=== PATIENT | female | born 1990 ===

== ENCOUNTER 2022-04-24 20:53 | Emergency (ER) | payer OTHER, SELFPAY ==
[2022-04-24] VITALS (11 sets, daily range): BP systolic 111–133; BP diastolic 56–66; PULSE 73–109; RESP 17–62; TEMP 36; O2SAT 99–100
--- NOTE | 2022-04-24 | DI.CT.S_ITS ---
PROCEDURE: CT ANGIO HEAD AND NECK INDICATIONS: stroke TECHNIQUE: After the administration of intravenous contrast, 1 mm thick sections acquired from the aortic arch through the [place] of [place]. Post-contrast 4.5 mm thick sections then re-acquired from the foramen magnum to the vertex. 3-dimensional yalwqog-qyjcghidh-qwiwkrbmxx (MIP) and/or volume rendering reformats were acquired of the central intracranial vasculature and neck separately. For radiation dose reduction, the following was used: automated exposure control, adjustment of mA and/or kV according to patient size. COMPARISON: [facility], CT, CT HEAD/BRAIN WO CON, 04/24/2022, 20:56. FINDINGS: Image quality: Excellent. BRAIN: Brain: There is a large right intraparenchymal hematoma centered in the right parietal and temporal lobes measuring up to approximately 5.7 x 3.1 cm in transverse dimension with adjacent vasogenic edema and mass effect. There is leftward midline shift of up to approximately 1 cm. There is partial effacement of the basilar cisterns suggestive of developing transtentorial herniation. There is also partial effacement of the right lateral ventricle. Skull and face: Calvarium and facial bones appear intact, without suspicious lesions. Orbits appear normal. Sinuses: Sinuses and mastoids are clear. HEAD CT ANGIOGRAPHY: Anterior circulation: Intracranial internal carotid arteries are normal in size and appear patent bilaterally. The paired anterior cerebral arteries appear patent bilaterally. The anterior communicating artery also appears patent. The middle cerebral arteries appear patent bilaterally. No high-grade stenosis, occlusion, or filling defects. No cerebral aneurysms identified. Posterior circulation: There are tortuous vessels in the peripheral right temporal lobe adjacent to the lateral aspect of the parenchymal hematoma consistent with a vascular malformation, likely an arteriovenous malformation. Visualized portions of the vertebral arteries demonstrate normal caliber, and join to form a patent basilar artery. The posterior cerebral arteries appear patent bilaterally. No high-grade stenosis, occlusion, or filling defects. No cerebral aneurysms identified. NECK CT ANGIOGRAPHY: Carotid system: The great vessels demonstrate a conventional anatomy as they arise from the aortic arch. The origins of the common carotid arteries appear patent. The common carotid arteries demonstrate normal caliber and courses. The bifurcation regions are both widely patent. The internal carotid arteries demonstrate normal calibers and courses. Posterior circulation: The origins of the vertebral arteries both appear patent. The more superior extracranial portions of both vertebral arteries also demonstrate normal courses and calibers. They join to form a patent basilar artery. Soft tissues: Visualized neck soft tissues demonstrate no suspicious abnormalities. Bones: No suspicious bony lesions. Visualized cervical spine demonstrates straightening of the cervical lordosis. There is multilevel degenerative disc disease and facet joint arthropathy. IMPRESSION: 1. Large intraparenchymal hematoma redemonstrated within the right parietal and temporal lobes with associated vasogenic edema and mass effect as described. 2. 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 Findings called to Dr. Wagoner on 04/24/2022 at 9:18 p.m.. Any quantitative measurements of stenosis were performed using NASCET criteria. Dictated by: Jack Taylor M.D. on 04/24/2022 at 21:22 Approved by: Jack Taylor M.D. on 04/24/2022 at 21:33
--- NOTE | 2022-04-24 | DI.CT.S_ITS ---
PROCEDURE: CT HEAD/BRAIN WO CON INDICATIONS: stroke TECHNIQUE: Noncontrast 4.5 mm thick angled axial sections acquired from the foramen magnum to the vertex, with coronal and sagittal reformats. For radiation dose reduction, the following was used: automated exposure control, adjustment of mA and/or kV according to patient size. COMPARISON: [facility], CT, CT ANGIO HEAD AND NECK, 04/24/2022, 20:56. FINDINGS: Image quality: There is mild motion artifact. Brain: There is a large intraparenchymal hematoma centered in the right parietal and temporal lobes measuring up to approximately 5.5 x 2.9 cm in transverse dimension with associated vasogenic edema and mass effect. There is leftward midline shift of approximately 1 cm. There is partial effacement of the basilar cisterns suggestive of developing transtentorial herniation. There is also effacement of the right lateral ventricle. Skull and face: Calvarium and visualized facial bones are intact, without suspicious lesions. Sinuses: Visualized sinuses and mastoids are clear. IMPRESSION: 1. Large right intraparenchymal hematoma centered in the right parietal and temporal lobes with associated vasogenic edema and mass effect including leftward midline shift and developing transtentorial herniation. Results were called to the emergency room for Dr. Wagoner on 04/24/2022 at 9:18 p.m.. Dictated by: Jack Taylor M.D. on 04/24/2022 at 21:16 Approved by: Jack Taylor M.D. on 04/24/2022 at 21:22
--- NOTE | 2022-04-24 20:59 | ED.HA ---
HPI - Headache General Chief Complaint: Neuro Symptoms/Deficit Stated Complaint: Headache- code stroke- Time Seen by Provider: 04/24/22 20:58 History of Present Illness HPI Narrative: Patient is a 31-year-old female currently 33 weeks roughly presenting today with sudden onset of right sided headache vomiting and not moving her left side it all started approximately 1 hour ago. She is actually slightly hypotensive EMS reports a normal glucose. She apparently was at a episcopal retreat with friends. She is not talking but able to follow some commands. 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 She is otherwise healthy Felipe [phone] Related Data Allergies Allergy/AdvReac Type Severity Reaction Status Date / Time No Known Drug Allergies Allergy Verified 04/24/22 21:03 Exam Initial Vital Signs Initial Vital Signs: Vital Signs Pulse Rate 83 04/24/22 21:03 Respiratory Rate 17 04/24/22 21:03 Blood Pressure 111/63 04/24/22 21:03 Pulse Oximetry 99 04/24/22 21:03 Oxygen Delivery Method Room Air 04/24/22 21:03 GENERAL: Responsive to voice HEENT: Head atraumatic, right pupil is dilated sluggish left pupil is reactive CARDIOVASCULAR: Regular rate and rhythm without murmurs, rubs or gallops. RESPIRATORY: Breath sounds equal bilaterally, no wheezes rales or rhonchi. ABDOMEN: Soft, gravid EXTREMITIES: Normal range of motion, no clubbing or edema. Neurovascularly intact NEUROLOGICAL: Right dilated pupil left pupil is pinpoint inability to move left leg although she will lift her right leg she will squeeze her right hand no obvious gaze. Not squeezing left hand SKIN: Warm, dry, no laceration, no petechiae, no rashes or lesions. Procedures Intubation sedative: Etomidate Mg Given: 10 paralytic: Succinylcholine Mg Given: 100 Laryngoscope: other ET Tube Size: 7.5 ET Tube Uncuffed: No Tube Secured Depth (cm): 25 Tube Secured Location: teeth Tube Placement Confirmation: Visualized tube passing through cords, Equal breath sounds bilaterally, No breath sounds over epigastrium, Confirmation by capnometry and Chest Xray Course Orders Ordered: ED Orders 04/24/22 21:10 CBC Auto Diff [Complete Blood Count AUTO DIFF] Stat CMP [Comprehensive Metabolic Panel] Stat PT [Prothrombin Time INR] Stat PTT Partial Thromboplastin Pierce Stat Type and Screen Stat 04/24/22 21:20 Arterial Blood Gas Daily 04/24/22 21:21 XR chest 1V Stat 04/25/22 21:20 Arterial Blood Gas Daily 04/26/22 21:20 Arterial Blood Gas Daily 04/27/22 21:20 Arterial Blood Gas Daily 04/28/22 21:20 Arterial Blood Gas Daily 04/29/22 21:20 Arterial Blood Gas Daily 04/30/22 21:20 Arterial Blood Gas Daily 05/01/22 21:20 Arterial Blood Gas Daily 05/02/22 21:20 Arterial Blood Gas Daily 05/03/22 21:20 Arterial Blood Gas Daily 05/04/22 21:20 Arterial Blood Gas Daily 05/05/22 21:20 Arterial Blood Gas Daily 05/06/22 21:20 Arterial Blood Gas Daily 05/07/22 21:20 Arterial Blood Gas Daily Chlorhexidine Gluconate (Chlorhexidine Gluconate 15 Ml Cup) 15 ml PO Q6HR ALESSANDRA Discontinued Medications Tranexamic Acid 1,000 mg/ (Sodium Chloride) 100 mls @ 200 mls/hr IV NOW ONE Stop: 04/24/22 21:34 Last Infusion: 04/24/22 21:55 Dose: 0 mls/hr Documented By: Admin: 04/24/22 21:12 Dose: 200 mls/hr Documented By: CINTHYA Sodium Chloride (Normal Saline 0.9%) 1,000 mls @ 1,000 mls/hr IV BOLUS ONE Stop: 04/24/22 22:06 Mannitol 75 gm/ Miscellaneous 300 mls @ 600 mls/hr IV NOW ONE Stop: 04/24/22 21:39 Sodium Chloride (Hypertonic Saline 3%) 500 mls @ 20 mls/hr IV CONT ALESSANDRA Last Infusion: 04/24/22 21:55 Dose: 0 mls/hr Documented By: Admin: 04/24/22 21:26 Dose: 50 mls/hr Documented By: CINTHYA Propofol (Propofol) 1,000 mg in 100 mls @ 2.085 mls/hr IV TITRATE ALESSANDRA; Protocol Last Titration: 04/24/22 21:55 Dose: 0 mcg/kg/min, 0 mls/hr Documented By: Titration: 04/24/22 21:41 Dose: 30 mcg/kg/min, 12.51 mls/hr Documented By: Titration: 04/24/22 21:38 Dose: 20 mcg/kg/min, 8.34 mls/hr Documented By: Titration: 04/24/22 21:34 Dose: 10 mcg/kg/min, 4.17 mls/hr Documented By: Admin: 04/24/22 21:30 Dose: 5 mcg/kg/min, 2.085 mls/hr Documented By: CINTHYA Propofol (Propofol 200 Mg/20 Ml Vial) 70 mg 1 mg/kg (70 mg) IV NOW ONE Stop: 04/24/22 21:08 Last Admin: 04/24/22 21:26 Dose: 70 mg Documented By: CINTHYA Vital Signs Vital signs: Vital Signs - 8 hr 04/24/22 21:03 04/24/22 21:07 04/24/22 21:10 Temperature 96.8 F L Pulse Rate 83 88 Respiratory Rate 17 62 H Blood Pressure 111/63 Pulse Oximetry 99 Oxygen Delivery Method Room Air 04/24/22 21:13 04/24/22 21:13 04/24/22 21:15 Temperature Pulse Rate 86 Respiratory Rate 46 H Blood Pressure 118/62 113/59 L Pulse Oximetry Oxygen Delivery Method 04/24/22 21:15 04/24/22 21:20 04/24/22 21:20 Temperature Pulse Rate 81 73 Respiratory Rate 55 H 17 Blood Pressure 124/66 Pulse Oximetry 100 Oxygen Delivery Method 04/24/22 21:25 04/24/22 21:25 04/24/22 21:30 Temperature Pulse Rate 106 H Respiratory Rate 32 H Blood Pressure 129/64 119/60 Pulse Oximetry 100 Oxygen Delivery Method 04/24/22 21:30 04/24/22 21:35 04/24/22 21:35 Temperature Pulse Rate 101 H 107 H Respiratory Rate 32 H 25 H Blood Pressure 133/60 Pulse Oximetry 100 100 Oxygen Delivery Method 04/24/22 21:40 04/24/22 21:40 04/24/22 21:20 Temperature Pulse Rate 97 H 109 H Respiratory Rate 25 H 20 Blood Pressure 114/56 L Pulse Oximetry 100 Oxygen Delivery Method MDM - Headache Lab Data 04/24/22 21:10 04/24/22 21:10 Labs: Lab Results 04/24/22 04/24/22 04/24/22 Range/Units 21:10 21:10 21:10 WBC 11.1 H (4.5-11.0) X10^3/uL RBC 3.42 L (4.0-5.2) X10^6/uL Hgb 9.6 L (12.0-16.0) g/dL Hct 28.2 L (36-46) % MCV 82.5 (80-100) fL MCH 28.1 (26-34) PG MCHC 34.1 (30-36) % RDW 14.1 (11.6-14.8) % Plt Count 182 (150-400) X10^3/uL Neut % (Auto) 68.8 (50-75) % Lymph % (Auto) 22.5 L (25-40) % Dillon % (Auto) 8.3 (3-14) % Eos % (Auto) 0.3 L (2-4) % Baso % (Auto) 0.1 (0-2) % Neut # (Auto) 7600 H (7475-1358) /uL Lymph # (Auto) 2500 (8391-4106) /uL Dillon # (Auto) 900 (0-900) /uL Eos # (Auto) 0 (0-450) /uL Baso # (Auto) 0 (0-100) /uL PT 11.4 (10.1-12.7) SECONDS INR 1.0 (0.9-1.3) APTT 26 (26-36) SECONDS Sodium 134 L (137-145) mmol/L Potassium 2.9 L (3.4-5.1) mmol/L Chloride 102 (98-107) mmol/L Carbon Dioxide 24 (22-32) mmol/L BUN 5 L (7-17) mg/dL Creatinine 0.49 L (0.52-1.04) mg/dL Estimated GFR > 60 (>60) mL/min BUN/Creatinine Ratio 10.2 (6-22) Glucose 104 H (70-100) mg/dL Calcium 8.2 L (8.4-10.2) mg/dL Total Bilirubin 0.2 (0.2-1.3) mg/dL AST 22 (14-36) IU/L ALT 20 (<35) IU/L Alkaline Phosphatase 135 H (38-126) U/L Total Protein 5.9 L (6.3-8.2) g/dL Albumin 3.1 L (3.5-5.0) g/dL Globulin 2.8 (1.7-4.1) g/dL Albumin/Globulin Ratio 1.1 (1.0-2.8) Blood Type Antibody Screen 04/24/22 Range/Units 21:10 WBC (4.5-11.0) X10^3/uL RBC (4.0-5.2) X10^6/uL Hgb (12.0-16.0) g/dL Hct (36-46) % MCV (80-100) fL MCH (26-34) PG MCHC (30-36) % RDW (11.6-14.8) % Plt Count (150-400) X10^3/uL Neut % (Auto) (50-75) % Lymph % (Auto) (25-40) % Dillon % (Auto) (3-14) % Eos % (Auto) (2-4) % Baso % (Auto) (0-2) % Neut # (Auto) (7664-6074) /uL Lymph # (Auto) (9093-2645) /uL Dillon # (Auto) (0-900) /uL Eos # (Auto) (0-450) /uL Baso # (Auto) (0-100) /uL PT (10.1-12.7) SECONDS INR (0.9-1.3) APTT (26-36) SECONDS Sodium (137-145) mmol/L Potassium (3.4-5.1) mmol/L Chloride (98-107) mmol/L Carbon Dioxide (22-32) mmol/L BUN (7-17) mg/dL Creatinine (0.52-1.04) mg/dL Estimated GFR (>60) mL/min BUN/Creatinine Ratio (6-22) Glucose (70-100) mg/dL Calcium (8.4-10.2) mg/dL Total Bilirubin (0.2-1.3) mg/dL AST (14-36) IU/L ALT (<35) IU/L Alkaline Phosphatase (38-126) U/L Total Protein (6.3-8.2) g/dL Albumin (3.5-5.0) g/dL Globulin (1.7-4.1) g/dL Albumin/Globulin Ratio (1.0-2.8) Blood Type O Positive Antibody Screen Negative Imaging Data CT scan - head: Radiologist's Impression: PROCEDURE:? CT HEAD/BRAIN WO CON ? INDICATIONS:? stroke ? TECHNIQUE:? Noncontrast 4.5 mm thick angled axial sections acquired from the foramen magnum to the vertex, with coronal and sagittal reformats.? For radiation dose reduction, the following was used:? automated exposure control, adjustment of mA and/or kV according to patient size.? ? COMPARISON:? [facility], CT, CT ANGIO HEAD AND NECK, 04/24/2022, 20:56. ? FINDINGS:? Image quality:? There is mild motion artifact.? ? Brain:? There is a large intraparenchymal hematoma centered in the right parietal and temporal lobes measuring up to approximately 5.5 x 2.9 cm in transverse dimension with associated vasogenic edema and mass effect.? There is leftward midline shift of approximately 1 cm.? There is partial effacement of the basilar cisterns suggestive of developing transtentorial herniation.? There is also effacement of the right lateral ventricle. ? Skull and face:? Calvarium and visualized facial bones are intact, without suspicious lesions.? ? Sinuses:? Visualized sinuses and mastoids are clear.? ? IMPRESSION:? ? 1. Large right intraparenchymal hematoma centered in the right parietal and temporal lobes with associated vasogenic edema and mass effect including leftward midline shift and developing transtentorial herniation. ? Results were called to the emergency room for Dr. Wagoner on 04/24/2022 at 9:18 p.m..? ? ? Dictated by: Jack Taylor M.D. on 04/24/2022 at 21:16 ? ? CTA - brain/neck: Radiologist's Impression: PROCEDURE:? CT ANGIO HEAD AND NECK ? INDICATIONS:? stroke ? TECHNIQUE:? After the administration of intravenous contrast, 1 mm thick sections acquired from the aortic arch through the [place] of [place].? Post-contrast 4.5 mm thick sections then re-acquired from the foramen magnum to the vertex.? 3-dimensional cspmjmc-rcdsagtsy-rsgsfdetlt (MIP) and/or volume rendering reformats were acquired of the central intracranial vasculature and neck separately. For radiation dose reduction, the following was used:? automated exposure control, adjustment of mA and/or kV according to patient size.? ? COMPARISON:? [facility], CT, CT HEAD/BRAIN WO CON, 04/24/2022, 20:56. ? FINDINGS:? Image quality:? Excellent.? ? BRAIN:? ? Brain:? There is a large right intraparenchymal hematoma centered in the right parietal and temporal lobes measuring up to approximately 5.7 x 3.1 cm in transverse dimension with adjacent vasogenic edema and mass effect.? There is leftward midline shift of up to approximately 1 cm.? There is partial effacement of the basilar cisterns suggestive of developing transtentorial herniation.? There is also partial effacement of the right lateral ventricle. ? Skull and face:? Calvarium and facial bones appear intact, without suspicious lesions.? Orbits appear normal.? ? Sinuses:? Sinuses and mastoids are clear.? ? HEAD CT ANGIOGRAPHY:? Anterior circulation:? Intracranial internal carotid arteries are normal in size and appear patent bilaterally.? The paired anterior cerebral arteries appear patent bilaterally.? The anterior communicating artery also appears patent. The middle cerebral arteries appear patent bilaterally.? No high-grade stenosis, occlusion, or filling defects.? No cerebral aneurysms identified. ? Posterior circulation:? There are tortuous vessels in the peripheral right temporal lobe adjacent to the lateral aspect of the parenchymal hematoma consistent with a vascular malformation, likely an arteriovenous malformation.? Visualized portions of the vertebral arteries demonstrate normal caliber, and join to form a patent basilar artery.? The posterior cerebral arteries appear patent bilaterally.? No high-grade stenosis, occlusion, or filling defects.? No cerebral aneurysms identified. ? NECK CT ANGIOGRAPHY:? Carotid system:? The great vessels demonstrate a conventional anatomy as they arise from the aortic arch.? The origins of the common carotid arteries appear patent.? The common carotid arteries demonstrate normal caliber and courses.? The bifurcation regions are both widely patent.? The internal carotid arteries demonstrate normal calibers and courses.? ? Posterior circulation:? The origins of the vertebral arteries both appear patent.? The more superior extracranial portions of both vertebral arteries also demonstrate normal courses and calibers.? They join to form a patent basilar artery.? ? Soft tissues:? Visualized neck soft tissues demonstrate no suspicious abnormalities.? ? Bones:? No suspicious bony lesions.? Visualized cervical spine demonstrates straightening of the cervical lordosis.? There is multilevel degenerative disc disease and facet joint arthropathy.? ? IMPRESSION:? ? 1. Large intraparenchymal hematoma redemonstrated within the right parietal and temporal lobes with associated vasogenic edema and mass effect as described. ? 2. 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 ? Findings called to Dr. Wagoner on 04/24/2022 at 9:18 p.m.. ? Any quantitative measurements of stenosis were performed using NASCET criteria.? ? ? Dictated by: Jack Taylor M.D. on 04/24/2022 at 21:22 ? ? Chest x-ray: My Impression: ET tube in place at ronnie [facility] Narrative Medical decision making narrative: Patient is a 31-year-old female, currently little is known she is approximately 33 weeks friends say that she is due in 7 weeks. Was at a episcopal retreat sudden onset right-sided headache with vomiting unable to move left leg. Is found have significant intracranial hemorrhage with sign of herniation. She is emergently given TXA and a 30 mL bolus of hypertonic. She was intubated for airway protection started on propofol drip. OB at bedside, agrees with treatment was at bedside [facility] was immediately consulted after I saw intracranial hemorrhage on CT. Dr. Norwood accepts patient Critical Care Time Critical Care Time Critical Care Time: Yes Total Critical Care Time: 45 Attestation: The high probability of a clinically significant, sudden or life threatening deterioration of the neurovascular system(s) required my full and direct attention, intervention and personal management. The aggregate critical care time was [45] minutes. This time is in addition to time spent performing reported procedures but includes the following: [x] Data Review and interpretation [x] Patient assessment and monitoring of vital signs [x] Documentation [x] Medication orders and management Discharge Plan Departure Patient Disposition: [facility] Clinical Impression: Intracranial hemorrhage,
--- NOTE | 2022-04-24 21:07 | PC.NURSE ---
Addendum entered by Vanita Hoff R.N. 04/24/22 21:56: Flight team transferred with propofol drip and 3% Saline infusing Addendum entered by Vanita Hoff R.N. 04/24/22 21:48: OG placed 2119. Pretty placed 2135. At time of intubation was sedated with 10mg of Etomidate and 100mg of Sux. Addendum entered by Vanita Hoff R.N. 04/24/22 21:46: After 30ml infusion, rate change to 500ml for 350 VTBI by flight RN Addendum entered by Vanita Hoff R.N. 04/24/22 21:33: per provider, do 30ml bolus of 3% NS over 10 minutes stop. Addendum entered by Vanita Hoff R.N. 04/24/22 21:18: Intubation started at 2115 at the teeth, 7.5 ET tube. Positive color change. Original Note: Patient brought in by EMS for sudden onset of headache with left side defect. Unable to communicate with staff. Right pupil is large dilated and unresponsive per Dr Wagoner. Labor and delivery nurse at bedside to check fetus, is due in 7 weeks. FHR 145-155.
[2022-04-24] MEDS: TRANEXAMIC ACID 1,000 MG in SODIUM CHLORIDE 0.9% 100 ML 200 MG IV (21:12)
--- NOTE | 2022-04-24 21:21 | DI.RAD.S_ITS ---
PROCEDURE: XR CHEST 1V INDICATIONS: Intubation TECHNIQUE: One view of the chest was acquired. COMPARISON: None. FINDINGS: Surgical changes and devices: There is an endotracheal tube with the tip extending to ronnie. Lungs and plera: There are low lung volumes with bilateral perihilar pulmonary vascular prominence likely representing pulmonary edema. No pleural effusions or pneumothorax. Mediastinum: Mediastinal contours appear normal. Heart size is normal. Bones and chest wall: No suspicious bony lesions. Overlying soft tissues appear unremarkable. IMPRESSION: 1. Endotracheal tube extends to the ronnie. Recommend withdrawal by approximately 3 cm. Findings discussed with Dr. Wagoner on 04/24/2022 at 9:48 p.m.. 2. Bilateral perihilar pulmonary vascular prominence likely represents pulmonary edema. The differential also includes hemorrhage or aspiration. Dictated by: Jack Taylor M.D. on 04/24/2022 at 21:47 Approved by: Jack Taylor M.D. on 04/24/2022 at 21:50
[2022-04-24] MEDS: SODIUM CHLORIDE 3 % 500 ML 50 ML IV (21:26)
[2022-04-24] MEDS: propofoL 200 MG/20 ML VIAL 70 MG IV (21:26)
[2022-04-24 21:30] LABS: Prothrombin Time 11.4 SECONDS (10.1-12.7)
[2022-04-24] MEDS: propofoL 1,000 MG/100 ML VIAL 2.085 MG IV (21:30)
[2022-04-24 21:32] LABS: PTT Partial Thromboplastin Tim 26 SECONDS (26-36)
[2022-04-24 21:36] LABS: Alanine Aminotransferase 20 IU/L (<35); Albumin 3.1 g/dL (3.5-5.0); Albumin Globulin Ratio 1.1 (1.0-2.8); Alkaline Phosphatase 135 U/L (38-126); Aspartate Aminotransferase 22 IU/L (14-36); BUN Creatinine Ratio 10.2 (6-22); Bilirubin Total 0.2 mg/dL (0.2-1.3); Blood Urea Nitrogen 5 mg/dL (7-17); Calcium 8.2 mg/dL (8.4-10.2); Carbon Dioxide 24 mmol/L (22-32); Chloride 102 mmol/L (98-107); Estimated Glomerular Filt Rate > 60 mL/min (>60); Globulin 2.8 g/dL (1.7-4.1); Glucose 104 mg/dL (70-100); HEMOLYSIS < 15 (0-50); Potassium 2.9 mmol/L (3.4-5.1); Sodium 134 mmol/L (137-145); Total Protein 5.9 g/dL (6.3-8.2)
[2022-04-24 21:54] LABS: Add Manual Diff / Slide Review NO; Basophils Absolute Auto 0 /uL (0-100); Basophils Percent Auto 0.1 % (0-2); Eosinophils Absolute Auto 0 /uL (0-450); Eosinophils Percent Auto 0.3 % (2-4); Hematocrit 28.2 % (36-46); Hemoglobin 9.6 g/dL (12.0-16.0); Lymphocytes Absolute Auto 2500 /uL (1100-4500); Lymphocytes Percent Auto 22.5 % (25-40); Mean Corpuscular HGB Conc 34.1 % (30-36); Mean Corpuscular Hemoglobin 28.1 PG (26-34); Mean Corpuscular Volume 82.5 fL (80-100); Monocytes Absolute Auto 900 /uL (0-900); Monocytes Percent Auto 8.3 % (3-14); Neutrophils Absolute Auto 7600 /uL (1500-7000); Neutrophils Percent Auto 68.8 % (50-75); Platelet Count 182 X10^3/uL (150-400); Red Blood Cell Count 3.42 X10^6/uL (4.0-5.2); Red Cell Distribution Width 14.1 % (11.6-14.8); White Blood Cell Count 11.1 X10^3/uL (4.5-11.0)
--- NOTE | 2022-05-03 12:48 | PC.NURSE ---
called for pt's covid results. Confirmed w/ Dr. Wagoner that pt's is her DPOA (treating provider). Told no Covid was done as she was transferred expeditiously.
== END 2022-04-24 22:07 | disposition short-term general hospital (02) ==
PROVIDERS: Emergency Provider Emergency Medicine
DX: I62.9 Nontraumatic intracranial hemorrhage, unspecified (principal); Z3A.33 33 weeks gestation of pregnancy
CPT/HCPCS: 31500; 36415; 70450; 70496; 70498; 71045; 80053; 85025; 85610; 85730; 86850; 86900; 86901; 94002; 94799; 96365; 99284; 99291; 99292; J2704; Q9967